=== PATIENT | male | born 1970 | race Caucasian/White ===

== ENCOUNTER 2018-09-16 14:20 | Inpatient (IN) | payer BC, OTHER ==
[2018-09-16] MEDS ORDERED: NS 1,000 ML IV ONE (14:28)
[2018-09-16] MEDS ORDERED: HYDROmorphONE/DILAUDID 2 MG/ML INJ IVP ONE (14:28)
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
[2018-09-16] MEDS ORDERED: ONDANSETRON 4 MG/2 ML VIAL ONE (14:43)
[2018-09-16] MEDS ORDERED: IOPAMIDOL (ISOVUE-300) 100 ML BTL ONE (15:20)
[2018-09-16 15:49] LABS: PLATELET COUNT 263 10^3/uL (150-400)
[2018-09-16 16:01] LABS: INR 1.03 (0.83-1.16); PROTIME(PATIENT) 13.1 SEC (12.0-15.0)
[2018-09-16] MEDS ORDERED: NALOXONE HCL 0.4 MG/ML INJ IVP PRN (17:02)
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
[2018-09-16] MEDS: ONDANSETRON 4 MG/2 ML VIAL IVP PRN (18:39)
[2018-09-16] MEDS ORDERED: LORazepam 2 MG/ML INJ ONE (19:04)
[2018-09-16] MEDS ORDERED: LORazepam 2 MG/ML INJ IVP ONE (19:18)
[2018-09-16] MEDS: PANTOPRAZOLE SODIUM 40 MG TAB PO SCH ×2 (20:50→22:46)
[2018-09-16] MEDS: ACETAMINOPHEN 500 MG TAB PO SCH ×2 (20:50→22:46)
[2018-09-16] MEDS ORDERED: NOREPINEPHRINE BITARTRATE 4 MG in NS 500 ML IV SCH (21:00)
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
[2018-09-16] MEDS: HYDROmorphONE/DILAUDID 1 MG/ML INJ IVP PRN (21:19)
[2018-09-16] MEDS ORDERED: LIDOCAINE 1% 300 MG/30 ML SDV ONE (21:54)
[2018-09-17] MEDS: HYDROmorphONE/DILAUDID 1 MG/ML INJ IVP PRN ×6 (00:47→22:33)
[2018-09-17] MEDS ORDERED: NOREPINEPHRINE BITARTRATE 16 MG in NS 250 ML IV SCH (01:00)
[2018-09-17] MEDS ORDERED: NS BOLUS 500 ML IV ONE (01:30)
[2018-09-17] MEDS: PHENYLEPHRINE HCL 50 MG in NS 250 ML IV SCH ×3 (01:43→11:49)
[2018-09-17] MEDS: ACETAMINOPHEN 500 MG TAB PO SCH ×3 (03:09→17:50)
--- NOTE | 2018-09-17 05:21 | GOP ---
[f rep st] OPERATIVE REPORT DATE OF OPERATION: SURGEON: El Hernandez MD PREOPERATIVE DIAGNOSIS: Spinal cord injury. POSTOPERATIVE DIAGNOSIS: Spinal cord injury. PROCEDURE PERFORMED: Placement of a right subclavian triple-lumen central line and a left femoral arterial line. FINDINGS: Spinal cord injury. INDICATIONS: Placement of central venous access for administration of pressors and arterial line for monitoring pressure to maintain mean arterial pressure greater than 85. DESCRIPTION OF PROCEDURE: The patient was consented. After he was prepped and draped, he was placed in a steep Trendelenburg position. He has received 500 cc of normal saline. A thin-walled needle was carefully passed in the subclavian region to access the subclavian vein. The bevel is rotated from bevel up position clockwise 90 degrees. A guidewire was carefully passed. Ectopy is identified confirming position. The guidewire was pulled back slightly. The syringe needle was removed from the guidewire. The skin was incised. A dilator was carefully passed. The dilator was removed. The triple- lumen catheter, whose blue and white hubs had been previously flushed through Hep-Lock adapters is carefully fed over the guidewire. The guidewire was removed and Hep-Lock adaptor was placed on the brown hub. The central line was secured at its skin entrance and onto the anterior chest wall. The brown hub was carefully aspirated and flushed. A biopatch and tegaderm was placed. A chest x-ray was performed with the patient in a 25 degree head up position. No pneumothorax identified. The central line is in good position. Left groin was now carefully prepped and draped. The skin is anesthetized. The artery was carefully accessed with the bevel up thin-walled needle. Guidewire was passed without difficulty. The needle was removed. The arterial line was carefully passed over the guidewire. It was secured in position. The guidewire was removed and a monitoring line is attached. A Tegaderm was placed. Good waveform had been obtained. The patient tolerated the procedure well. /[id number]/MODL MTDD
[2018-09-17 05:52] LABS: PLATELET COUNT 295 10^3/uL (150-400)
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
[2018-09-17] MEDS: PANTOPRAZOLE SODIUM 40 MG TAB PO SCH (09:18)
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
[2018-09-17] MEDS: LR 1,000 ML IV SCH ×2 (10:24→17:49)
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
--- NOTE | 2018-09-17 13:08 | SOAPPROG ---
SOAP Progress Note Assessment/Plan: Assessment: Spinal cord injury Plan: No orthopedic injuries identified on repeat exam will sign off call [phone] if questions 09/17/18 13:06 Subjective: no pain at rest Objective: Vital Signs Temp Pulse Resp BP Pulse Ox 36.6 C 52 L 19 165/61 H 97 09/17/18 09:00 09/17/18 12:00 09/17/18 12:00 09/17/18 12:00 09/17/18 12:00 Laboratory Results 09/17/18 05:30 09/17/18 05:30 09/16/18 09/17/18 09/18/18 05:59 05:59 05:59 Intake Total 3546 1094 Output Total 1275 1250 Balance 2271 -156 PT 13.1 SEC (12.0-15.0) 09/16/18 15:34 INR 1.03 (0.83-1.16) 09/16/18 15:34 RLE soft tight no ttp 0/5 hip flexion, knee ext, ankle df and pf 2/5 ankle plantar flexion and great toe flexion ICD10 Worksheet Patient Problems: Problems Problem Status Onset Cervical spine fracture Acute Pneumothorax on right Acute
[2018-09-17] MEDS ORDERED: BISACODYL 10 MG SUPP PR PRN (14:45)
[2018-09-17] MEDS ORDERED: MAGNESIUM HYDROXIDE 30 ML UDCUP PO PRN (14:45)
[2018-09-17] MEDS ORDERED: LACTULOSE 20 GM/30 ML UDCUP PO PRN (14:45)
[2018-09-17] MEDS: NS IV SCH (14:59)
[2018-09-17] MEDS: PHENYLEPHRINE HCL IV SCH (14:59)
[2018-09-17] MEDS: MIDODRINE HCL 10 MG TAB PO SCH ×2 (14:59→21:10)
[2018-09-17] MEDS: ONDANSETRON 4 MG/2 ML VIAL IVP PRN (19:25)
[2018-09-17] MEDS: FAMOTIDINE 20 MG TAB PO SCH (21:10)
[2018-09-17] MEDS: SENNOSIDES/DOCUSATE SODIUM TAB PO SCH (21:10)
[2018-09-18] MEDS: LR 1,000 ML IV SCH ×3 (01:46→19:25)
[2018-09-18] MEDS: ACETAMINOPHEN 500 MG TAB PO SCH ×3 (01:56→17:55)
[2018-09-18] MEDS: NS IV SCH ×2 (02:21→21:10)
[2018-09-18] MEDS: PHENYLEPHRINE HCL IV SCH ×2 (02:21→21:10)
[2018-09-18] MEDS: MIDODRINE HCL 10 MG TAB PO SCH ×3 (05:07→21:06)
[2018-09-18 05:44] LABS: PLATELET COUNT 218 10^3/uL (150-400)
[2018-09-18] MEDS: HYDROmorphONE/DILAUDID 1 MG/ML INJ IVP PRN ×4 (06:01→21:06)
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
[2018-09-18] MEDS: SENNOSIDES/DOCUSATE SODIUM TAB PO SCH ×2 (09:20→19:27)
[2018-09-18] MEDS: METHOCARBAMOL 750 MG TAB PO PRN ×2 (09:20→17:55)
[2018-09-18] MEDS: FAMOTIDINE 20 MG TAB PO SCH ×2 (09:20→19:27)
--- NOTE | 2018-09-18 10:20 | SOAPPROG ---
SOAP Progress Note Assessment/Plan: Assessment: Plan: Subjective: feels crappy c collar in place a and o x 4 lung clear, perrl, eomi lungs clear heart nml s1s2 abd mildly distended, non tender assess; SAH and c spine fx with small epidural hematoma. goal to keep MAP above 85 c collar and brace at all times. advance diet a s tolerated, hold off on lovenox. no new acute issues. Objective: Vital Signs Temp Pulse Resp BP Pulse Ox 37 C 45 L 14 160/74 H 94 09/18/18 05:00 09/18/18 09:00 09/18/18 07:00 09/18/18 09:00 09/18/18 09:00 Laboratory Results 09/18/18 05:30 09/17/18 05:30 09/17/18 09/18/18 09/19/18 05:59 05:59 05:59 Intake Total 3546 5455 Output Total 1275 2910 Balance 2271 2545 PT 13.1 SEC (12.0-15.0) 09/16/18 15:34 INR 1.03 (0.83-1.16) 09/16/18 15:34 ICD10 Worksheet Patient Problems: Problems Problem Status Onset Cervical spine fracture Acute Pneumothorax on right Acute
[2018-09-18] MEDS: oxyCODONE IR 5 MG TAB PO PRN ×3 (10:31→23:48)
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
--- NOTE | 2018-09-18 16:27 | ASMTCMCOM ---
CM Note CM Note Notes: CM spoke with [facility], they said someone is going to come out to review pt later this week or early next week depending on progress. CM to submit updated information via [employer] to [place] on Sunday. CM was contacted by [facility] to inform CM they are working on insurance auth and Elke is the CM from pt's insurance and would like discharge planning updates. [phone] Plan: [facility]. Date Signed: 09/18/2018 04:26 PM Electronically Signed By:JT John
[2018-09-19] MEDS: ACETAMINOPHEN 500 MG TAB PO SCH ×3 (02:01→18:15)
[2018-09-19] MEDS: LR 1,000 ML IV SCH ×2 (02:40→10:55)
[2018-09-19] MEDS: METHOCARBAMOL 750 MG TAB PO PRN (04:37)
[2018-09-19] MEDS: MIDODRINE HCL 10 MG TAB PO SCH ×3 (06:11→22:07)
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
[2018-09-19] MEDS: oxyCODONE IR 5 MG TAB PO PRN ×3 (08:29→22:06)
[2018-09-19] MEDS: POLYETHYLENE GLYCOL 3350 17 GM PKT PO PRN (08:31)
[2018-09-19] MEDS: SENNOSIDES/DOCUSATE SODIUM TAB PO SCH ×2 (08:31→19:44)
[2018-09-19] MEDS: FAMOTIDINE 20 MG TAB PO SCH ×2 (08:32→19:44)
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
[2018-09-20] MEDS: LR 1,000 ML IV SCH ×3 (01:58→20:01)
[2018-09-20] MEDS: ACETAMINOPHEN 500 MG TAB PO SCH ×3 (02:04→19:05)
[2018-09-20] MEDS: PHENYLEPHRINE HCL IV SCH (03:54)
[2018-09-20] MEDS: NS IV SCH (03:54)
[2018-09-20] MEDS: MIDODRINE HCL 10 MG TAB PO SCH ×3 (06:07→21:29)
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
[2018-09-20] MEDS ORDERED: PROTOCOL POTASSIUM 1 DOSE MISC PRN (08:09)
[2018-09-20] MEDS ORDERED: MIDODRINE HCL 10 MG TAB PO ONE (08:15)
[2018-09-20] MEDS ORDERED: POTASSIUM CL 10 MEQ TAB PO ONE ×2 (08:39→19:09)
[2018-09-20] MEDS: SENNOSIDES/DOCUSATE SODIUM TAB PO SCH ×2 (08:46→20:00)
[2018-09-20] MEDS: ENOXAPARIN 40 MG/0.4 ML SYR SC SCH (08:46)
[2018-09-20] MEDS: FAMOTIDINE 20 MG TAB PO SCH ×2 (08:46→20:00)
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
[2018-09-20] MEDS ORDERED: ENOXAPARIN 40 MG/0.4 ML SYR SC SCH (09:00)
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
--- NOTE | 2018-09-20 13:45 | ASMTCMCOM ---
CM Note CM Note Notes: Sent updates to [facility]. They will send a liasion, Tiffnaie, to [facility] on Saturday 09/23 to meet with patient and family. I spoke w patient's eleni Spencer and relayed this news. Case Mangement will follow. Date Signed: 09/20/2018 01:44 PM Electronically Signed By:Melva Cordoba RN
[2018-09-20] MEDS: POLYETHYLENE GLYCOL 3350 17 GM PKT PO PRN (20:02)
[2018-09-20] MEDS: oxyCODONE IR 5 MG TAB PO PRN (21:30)
[2018-09-21] MEDS: ACETAMINOPHEN 500 MG TAB PO SCH ×3 (03:04→17:45)
[2018-09-21] MEDS: MIDODRINE HCL 10 MG TAB PO SCH ×3 (06:08→22:00)
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
[2018-09-21 08:17] LABS: PLATELET COUNT 255 10^3/uL (150-400)
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
[2018-09-21] MEDS: FAMOTIDINE 20 MG TAB PO SCH ×2 (10:22→20:01)
[2018-09-21] MEDS: SENNOSIDES/DOCUSATE SODIUM TAB PO SCH ×2 (10:22→20:01)
[2018-09-21] MEDS: ENOXAPARIN 40 MG/0.4 ML SYR SC SCH (10:23)
[2018-09-21] MEDS: oxyCODONE IR 5 MG TAB PO PRN (20:01)
[2018-09-22] MEDS: ACETAMINOPHEN 500 MG TAB PO SCH ×5 (02:04→22:40)
[2018-09-22] MEDS: oxyCODONE IR 5 MG TAB PO PRN ×2 (02:43→22:41)
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
[2018-09-22] MEDS: SENNOSIDES/DOCUSATE SODIUM TAB PO SCH ×3 (08:13→22:40)
[2018-09-22] MEDS: MIDODRINE HCL 10 MG TAB PO SCH ×3 (08:13→21:23)
[2018-09-22] MEDS: ENOXAPARIN 40 MG/0.4 ML SYR SC SCH (08:13)
[2018-09-22] MEDS: FAMOTIDINE 20 MG TAB PO SCH ×2 (08:13→21:23)
[2018-09-22] MEDS ORDERED: NOREPINEPHRINE BITARTRATE 4 MG in NS 500 ML IV SCH (10:30)
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
[2018-09-23] MEDS: ACETAMINOPHEN 500 MG TAB PO SCH ×3 (02:00→17:45)
[2018-09-23] MEDS: MIDODRINE HCL 10 MG TAB PO SCH ×4 (06:08→21:30)
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
[2018-09-23] MEDS ORDERED: POLYETHYLENE GLYCOL 3350 17 GM PKT PO PRN (10:15)
[2018-09-23] MEDS ORDERED: LACTULOSE 20 GM/30 ML UDCUP PO PRN (10:15)
[2018-09-23] MEDS ORDERED: MAGNESIUM HYDROXIDE 30 ML UDCUP PO PRN (10:15)
[2018-09-23] MEDS ORDERED: BISACODYL 10 MG SUPP PR PRN (10:15)
[2018-09-23] MEDS: SENNOSIDES/DOCUSATE SODIUM TAB PO SCH ×2 (10:29→21:30)
[2018-09-23] MEDS: METHOCARBAMOL 750 MG TAB PO PRN (10:29)
[2018-09-23] MEDS: FAMOTIDINE 20 MG TAB PO SCH ×2 (10:30→21:30)
[2018-09-23] MEDS ORDERED: SENNOSIDES/DOCUSATE SODIUM TAB PO SCH ×2 (11:00→21:00)
[2018-09-23] MEDS: ENOXAPARIN 40 MG/0.4 ML SYR SC SCH (11:44)
[2018-09-23] MEDS ORDERED: [UNRECOGNIZED DRUG - OTHER] PO PRN (14:21)
[2018-09-23] MEDS ORDERED: NS BOLUS 1000 ML (Wide open) IV ONE (14:30)
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
--- NOTE | 2018-09-23 15:55 | ASMTCMCOM ---
CM Note CM Note Notes: Tiffanie Moon from [facility] came to talk to patient and family today. She informed me that they are able to accept patient pending bed availability. I gave her updates, and she left a transfer checklist (put in front of chart) for us to use when he's ready for d/c. We will need to arrange S transport. Of note: [facility] does not do admissions Fri-Sun. Case Management will follow. Date Signed: 09/23/2018 03:52 PM Electronically Signed By:Melva Cordoba RN
[2018-09-23] MEDS: POLYETHYLENE GLYCOL 3350 17 GM PKT PO PRN (21:30)
[2018-09-24] MEDS: METHOCARBAMOL 750 MG TAB PO PRN (00:15)
[2018-09-24] MEDS: ACETAMINOPHEN 500 MG TAB PO SCH ×4 (00:15→20:53)
[2018-09-24] MEDS: oxyCODONE IR 5 MG TAB PO PRN ×2 (01:59→20:41)
[2018-09-24] MEDS: NS 1,000 ML IV SCH ×2 (02:00→22:13)
[2018-09-24] MEDS: MIDODRINE HCL 10 MG TAB PO SCH ×3 (06:31→22:15)
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
[2018-09-24] MEDS: ENOXAPARIN 40 MG/0.4 ML SYR SC SCH (09:34)
[2018-09-24] MEDS: SENNOSIDES/DOCUSATE SODIUM TAB PO SCH ×2 (09:35→20:41)
[2018-09-24] MEDS: TAMSULOSIN HCL 0.4 MG CAP PO SCH (09:35)
[2018-09-24] MEDS: FAMOTIDINE 20 MG TAB PO SCH ×2 (09:35→20:41)
[2018-09-24] MEDS ORDERED: [UNRECOGNIZED DRUG - OTHER] PO PRN (14:30)
--- NOTE | 2018-09-24 14:33 | ASMTCMCOM ---
CM Note CM Note Notes: CM spoke with Tiffanie from [facility], they are continuing to work on getting insurance auth from pt's insurance. They are hopeful they will get it today for a discharge tomorrow before 2pm. Tiffanie said she would call as soon as she hears anything. CM to follow. Plan: [facility] Pending insurance auth (likely discharge tomorrow or ). [facility] does not admit pt's . Date Signed: 09/24/2018 02:33 PM Electronically Signed By:JT John
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
[2018-09-25] MEDS: oxyCODONE IR 5 MG TAB PO PRN (00:44)
[2018-09-25] MEDS: ACETAMINOPHEN 500 MG TAB PO SCH ×3 (02:18→17:55)
[2018-09-25] MEDS: MIDODRINE HCL 10 MG TAB PO SCH ×3 (06:36→20:32)
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
[2018-09-25] MEDS: ENOXAPARIN 40 MG/0.4 ML SYR SC SCH (09:34)
[2018-09-25] MEDS: TAMSULOSIN HCL 0.4 MG CAP PO SCH (09:35)
[2018-09-25] MEDS: FAMOTIDINE 20 MG TAB PO SCH ×2 (09:35→20:32)
[2018-09-25] MEDS: SENNOSIDES/DOCUSATE SODIUM TAB PO SCH ×2 (09:35→20:32)
--- NOTE | 2018-09-25 11:43 | ASMTCMCOM ---
CM Note CM Note Notes: CM spoke with [facility], they still do not have insurance auth. CM informed pt and his family. They are aware it will likely mean for discharge tomorrow. Plan: [facility] Pending Insurance Auth Date Signed: 09/25/2018 11:43 AM Electronically Signed By:JT John
[2018-09-26] MEDS: ACETAMINOPHEN 500 MG TAB PO SCH ×2 (01:12→10:14)
[2018-09-26] MEDS: MIDODRINE HCL 10 MG TAB PO SCH (04:52)
[2018-09-26] MEDS: METHOCARBAMOL 750 MG TAB PO PRN (04:52)
[2018-09-26 08:41] VITALS: BP 121/75
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
[2018-09-26] MEDS: ENOXAPARIN 40 MG/0.4 ML SYR SC SCH (10:13)
[2018-09-26] MEDS: SENNOSIDES/DOCUSATE SODIUM TAB PO SCH (10:14)
[2018-09-26] MEDS: TAMSULOSIN HCL 0.4 MG CAP PO SCH (10:14)
[2018-09-26] MEDS: FAMOTIDINE 20 MG TAB PO SCH (10:14)
--- NOTE | 2018-09-26 10:32 | PDIAF ---
- Diagnosis Code Status: Full Code - Medication Management Discharge Medications: electronically signed and located in the Home Medication List. PICC Care - Routine: N/A - Orders Services needed: Registered Nurse, Physical Therapy, Occupational Therapy Isolation Type: None Diet Recommendation: no restrictions on diet Diet Texture: Regular Texture Diet Additional Instructions: -wear collar in bed -if HOB more than 30 degrees then pt will need CTLSO on -watch for any skin issues -follow up with Dr De Jesus's team in 6 weeks with xrays of the C/T/L spine -call [facility] with any questions or concerns - Follow Up Care Current Providers and Referrals: Patient,NotPresent [Unknown] - As per Instructions Adalberto De Jesus MD [Medical Doctor] - (follow up in 6 weeks with xrays of the C/ T/L spine-call office for Rx for this imaging if not able to get at rehab)
--- NOTE | 2018-09-26 11:18 | ASMTDCNOTE ---
Case Management Discharge Discharge Order Complete? Answers: Yes Patient to Obtain Answers: Other Notes: [facility] BLS Medications Transportation Arranged Answers: [facility] Stretcher Case Management Transport Answers: Yes Form Complete Faxed Final Orders Answers: Yes Agency/Facility Transfer Answers: Yes Report Printed & Faxed to Receiving Agency Family Notified Answers: Yes Discharge Comments Notes: [facility] has insurance authorization and is able to accept pt today. CM scheduled transportation through [facility] for noon. CM completed dsicharge checklist and provided RN with report number. CM submit discharge orders through [employer]. Pt and family notified and appreciative of transfer. No other CM needs identified. Date Signed: 09/26/2018 11:18 AM Electronically Signed By:JT John
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
== END 2018-09-26 13:16 | DRG 963 ==
LOC: EDUNIT# → OBSVTOIN 17:09 → F2N 19:51
PROVIDERS: ADMIT Surgery; ATTEND Surgery
DX: S12.600A Unspecified displaced fracture of seventh cervical vertebra, initial encounter for closed fracture (principal); T79.4XXA Traumatic shock, initial encounter; S06.5X9A Traumatic subdural hemorrhage with loss of consciousness of unspecified duration, initial encounter; S14.0XXA Concussion and edema of cervical spinal cord, initial encounter; S27.0XXA Traumatic pneumothorax, initial encounter; S13.4XXA Sprain of ligaments of cervical spine, initial encounter; S12.500A Unspecified displaced fracture of sixth cervical vertebra, initial encounter for closed fracture; S12.400A Unspecified displaced fracture of fifth cervical vertebra, initial encounter for closed fracture; S22.019A Unspecified fracture of first thoracic vertebra, initial encounter for closed fracture; S22.029A Unspecified fracture of second thoracic vertebra, initial encounter for closed fracture; S22.049A Unspecified fracture of fourth thoracic vertebra, initial encounter for closed fracture; S22.059A Unspecified fracture of T5-T6 vertebra, initial encounter for closed fracture; S22.079A Unspecified fracture of T9-T10 vertebra, initial encounter for closed fracture; S22.32XA Fracture of one rib, left side, initial encounter for closed fracture; S32.040A Wedge compression fracture of fourth lumbar vertebra, initial encounter for closed fracture; S32.050A Wedge compression fracture of fifth lumbar vertebra, initial encounter for closed fracture; S01.312A Laceration without foreign body of left ear, initial encounter; M25.571 Pain in right ankle and joints of right foot; R40.2412 Glasgow coma scale score 13-15, at arrival to emergency department; I95.1 Orthostatic hypotension; D72.829 Elevated white blood cell count, unspecified; K59.00 Constipation, unspecified; R33.9 Retention of urine, unspecified; V00.328A Other snow-ski accident, initial encounter; Y92.838 Other recreation area as the place of occurrence of the external cause; Y93.23 Activity, snow (alpine) (downhill) skiing, snowboarding, sledding, tobogganing and snow tubing; Y99.9 Unspecified external cause status
CPT/HCPCS: 82435-PO; 82565-PO; 82947-PO; 84132-PO; 84295-PO; 84520-PO; 85014-ER; 92507-GN; 92523-GN; 96374; 97110-GP; 97112-GP; 97116-GP; 97163-GP; 97167-GO; 97530-GO; 97530-GP; 97535-GO; G0480; J0690; J1170; J1265; J1650; J2060; J2370; J2405; Q9967

== ENCOUNTER → 2018-11-12 | Outpatient (CLI) | payer BC | LOC: FIMAGING 10:00 | PROVIDERS: ATTEND Neurological Surgery | DX: S22.070D Wedge compression fracture of T9-T10 vertebra, subsequent encounter for fracture with routine healing (principal); S32.000D Wedge compression fracture of unspecified lumbar vertebra, subsequent encounter for fracture with routine healing; S12.401 Unspecified nondisplaced fracture of fifth cervical vertebra; S12.6 Fracture of seventh cervical vertebra ==

== ENCOUNTER → 2018-12-05 | Outpatient (CLI) | payer BC | LOC: FIMAGING 10:19 ==